=== PATIENT | female | born 1980 | race Caucasian/White ===

== ENCOUNTER 2023-08-17 12:13 | Inpatient (IN) ==
[2023-08-17] MEDS ORDERED: HYDROmorphone 1 MG/ML SYRINGE IV ONE ×3 (12:33→15:41)
[2023-08-17] MEDS ORDERED: 0.9 % SODIUM CHLORIDE 1,000 ML IV ONE ×2 (12:33→12:50)
[2023-08-17] MEDS ORDERED: ONDANSETRON 4 MG/2 ML VIAL IV ONE ×2 (12:47→13:35)
[2023-08-17] MEDS ORDERED: fentaNYL 100 MCG/2 ML VIAL IV ONE ×2 (12:51→13:35)
[2023-08-17] MEDS ORDERED: PIPERACILLIN SODIUM/TAZOBACTAM 3.375 GM in DEXTROSE 5% IN WATER 50 ML IV ONE (13:04)
[2023-08-17 15:11] LABS: HCG,Serum Negative
[2023-08-17] MEDS: HYDROmorphone 0.5 MG/0.5 ML SYRINGE IV PRN ×2 (18:23→19:20)
[2023-08-17] MEDS: CIPROFLOXACIN 400 MG/200 ML BAG IV SCH (19:23)
[2023-08-17 19:35] LABS: Blood Urea Nitrogen 9 mg/dL (6-20); Calcium 8.5 mg/dL (8.6-10.4); Carbon Dioxide 24 mmol/L (22-30); Chloride 103 mmol/L (96-108); Glomerular Filtration Rate 77; Glucose 119 mg/dL (70-105)
[2023-08-17] MEDS: DEXTROSE 5%-LR 1,000 ML IV SCH (19:38)
[2023-08-17] MEDS ORDERED: ACETAMINOPHEN 1,000 MG/100 ML BAG IV ONE (20:55)
[2023-08-17] MEDS: ACETAMINOPHEN 1,000 MG/100 ML BAG IV SCH (20:56)
[2023-08-17] MEDS: metroNIDAZOLE 500 MG/100 ML BAG IV SCH (21:44)
[2023-08-17] MEDS ORDERED: ACETAMINOPHEN 1,000 MG/100 ML BAG IV SCH (22:00)
[2023-08-18] MEDS: HYDROmorphone 0.5 MG/0.5 ML SYRINGE IV PRN ×8 (00:37→21:18)
[2023-08-18] MEDS: DEXTROSE 5%-LR 1,000 ML IV SCH ×5 (02:00→22:42)
[2023-08-18] MEDS: metroNIDAZOLE 500 MG/100 ML BAG IV SCH (05:02)
[2023-08-18] MEDS: ACETAMINOPHEN 1,000 MG/100 ML BAG IV SCH ×3 (06:04→22:43)
[2023-08-18] MEDS: CIPROFLOXACIN 400 MG/200 ML BAG IV SCH (06:51)
[2023-08-18 07:25] LABS: Hematocrit 32.4 % (34.1-44.9); Hemoglobin 11.1 g/dL (11.2-15.7); Mean Cell Volume 91.5 fL (80.0-100.0); Mean Corpuscular HGB Conc 34.3 g/dL (31.0-36.0); Platelet Count 227 K/mcL (140-440); RBC 3.54 M/mcL (3.59-5.38); Red Cell Distribution Width 12.6 % (11.5-14.5); WBC 16.2 K/mcL (4.5-11.0)
[2023-08-18] MEDS ORDERED: METOCLOPRAMIDE 10 MG/2 ML VIAL IV PRN (09:16)
[2023-08-18] MEDS ORDERED: PIPERACILLIN SODIUM/TAZOBACTAM 3.375 GM in DEXTROSE 5% IN WATER 50 ML IV SCH (10:00)
[2023-08-18] MEDS ORDERED: KETAMINE 50 MG/ML Syringe IV ONE (10:50)
[2023-08-18] MEDS ORDERED: ROCURONIUM 10 MG/ML ML IV ONE (10:51)
[2023-08-18] MEDS ORDERED: PROPOFOL 200 MG/20 ML VIAL IV ONE (10:51)
[2023-08-18] MEDS ORDERED: fentaNYL 100 MCG/2 ML VIAL IV ONE (10:51)
[2023-08-18] MEDS ORDERED: ONDANSETRON 4 MG/2 ML VIAL ONE (10:51)
[2023-08-18] MEDS ORDERED: LIDOCAINE 2% PF 5 ML VIAL ONE (10:51)
[2023-08-18] MEDS ORDERED: MAGNESIUM SULFATE 2 GM/50 ML BAG IV ONE (10:51)
[2023-08-18] MEDS ORDERED: SUGAMMADEX SODIUM 200 MG/2 ML VIAL IV ONE (10:51)
[2023-08-18] MEDS ORDERED: DEXAMETHASONE 10 MG/ML VIAL ONE (10:51)
[2023-08-18 10:55] LABS: Appearance,Urine HAZY (Clear); Bilirubin,Urine Negative (Negative); Color,Urine YELLOW; Culture Indicated,Urine No; Glucose,Urine (UA) 50 mg/dL (Negative); Ketones,Urine 5 mg/dL (Negative); Leukocyte Esterase,Urine Negative /uL (Negative); Mucus,Urine FEW /hpf; Nitrate,Urine Negative (Negative); Protein,Urine 30 mg/dL (Negative); Specific Gravity,Urine 1.036 (1.000-1.035); Urine Blood Negative (Negative); Urine Hyaline Cast 1 /lph (0-2); Urine RBC 1 /hpf (0-3); Urine Squamous Epithelial Cell 2 /hpf (0-4); Urine WBC 2 /hpf (0-4); Urobilinogen,Urine Negative
[2023-08-18] MEDS ORDERED: BUPIVACAINE W/EPI 0.5% 50 ML VIAL IJ ONE (11:28)
[2023-08-18] MEDS ORDERED: MEPERIDINE 25 MG/ML VIAL IV PRN (11:52)
[2023-08-18] MEDS ORDERED: METHOCARBAMOL 1,000 MG/10 ML VIAL IV PRN (11:52)
[2023-08-18] MEDS ORDERED: IPRATROPIUM/ALBUTEROL 3 ML AMPUL.NEB NEB PRN (11:52)
[2023-08-18] MEDS ORDERED: ONDANSETRON 4 MG/2 ML VIAL IV PRN ×2 (11:52→12:57)
[2023-08-18] MEDS ORDERED: diphenhydrAMINE 50 MG/ML VIAL IV PRN (11:52)
[2023-08-18] MEDS ORDERED: NALOXONE HCL 0.4 MG/ML VIAL IV PRN (11:52)
[2023-08-18] MEDS ORDERED: PROMETHAZINE 25 MG/ML VIAL IV PRN (11:52)
[2023-08-18] MEDS ORDERED: LACTATED RINGERS 250 ML IV PRN (11:52)
[2023-08-18] MEDS ORDERED: KETOROLAC 30 MG/ML VIAL IV PRN (11:52)
[2023-08-18] MEDS ORDERED: LACTATED RINGERS 1,000 ML IV SCH (12:00)
[2023-08-18] MEDS: MEROPENEM 1 GM in 0.9 % SODIUM CHLORIDE 50 ML IV SCH ×2 (12:53→22:09)
[2023-08-18] MEDS ORDERED: MEROPENEM 1 GM in 0.9 % SODIUM CHLORIDE 50 ML IV SCH (13:00)
[2023-08-18] MEDS: fentaNYL 100 MCG/2 ML VIAL IV PRN ×2 (13:04→13:07)
[2023-08-18] MEDS ORDERED: oxyCODONE IR 5 MG TABLET PO ONE (19:36)
[2023-08-18] MEDS: oxyCODONE IR 5 MG TABLET PO PRN (19:38)
[2023-08-19] MEDS: HYDROmorphone 0.5 MG/0.5 ML SYRINGE IV PRN ×6 (00:43→23:58)
[2023-08-19] MEDS: DEXTROSE 5%-LR 1,000 ML IV SCH ×3 (01:04→18:44)
[2023-08-19] MEDS: oxyCODONE IR 5 MG TABLET PO PRN ×5 (03:25→21:56)
[2023-08-19] MEDS: MEROPENEM 1 GM in 0.9 % SODIUM CHLORIDE 50 ML IV SCH ×3 (05:14→22:20)
[2023-08-19] MEDS: ACETAMINOPHEN 1,000 MG/100 ML BAG IV SCH ×3 (05:36→21:57)
[2023-08-19 07:04] LABS: Hematocrit 30.4 % (34.1-44.9); Mean Cell Volume 93.3 fL (80.0-100.0); Mean Corpuscular HGB Conc 32.9 g/dL (31.0-36.0); Mean Platelet Volume 10.7 fL (8.8-12.5); Platelet Count 212 K/mcL (140-440); RBC 3.26 M/mcL (3.59-5.38); Red Cell Distribution Width 12.5 % (11.5-14.5); WBC 14.9 K/mcL (4.5-11.0)
[2023-08-19 08:18] LABS: Blood Urea Nitrogen 10 mg/dL (6-20); Calcium 8.7 mg/dL (8.6-10.4); Carbon Dioxide 27 mmol/L (22-30); Chloride 96 mmol/L (96-108); Glomerular Filtration Rate 89; Glucose 122 mg/dL (70-105)
[2023-08-19] MEDS ORDERED: diphenhydrAMINE 25 MG CAPSULE PO PRN (10:33)
[2023-08-19] MEDS: diphenhydrAMINE 25 MG CAPSULE PO PRN ×2 (10:55→20:31)
[2023-08-19] MEDS: KETOROLAC 15 MG/ML VIAL IV SCH ×2 (14:25→20:31)
[2023-08-20] MEDS: oxyCODONE IR 5 MG TABLET PO PRN ×2 (02:07→05:02)
[2023-08-20] MEDS: HYDROmorphone 0.5 MG/0.5 ML SYRINGE IV PRN ×6 (04:06→22:24)
[2023-08-20] MEDS: DEXTROSE 5%-LR 1,000 ML IV SCH (04:06)
[2023-08-20] MEDS: ACETAMINOPHEN 1,000 MG/100 ML BAG IV SCH ×3 (05:01→21:32)
[2023-08-20] MEDS: KETOROLAC 15 MG/ML VIAL IV SCH ×3 (05:35→21:31)
[2023-08-20] MEDS: MEROPENEM 1 GM in 0.9 % SODIUM CHLORIDE 50 ML IV SCH ×3 (06:10→21:45)
[2023-08-20 07:22] LABS: Hematocrit 30.1 % (34.1-44.9); Hemoglobin 9.9 g/dL (11.2-15.7); Mean Cell Volume 92.6 fL (80.0-100.0); Mean Corpuscular HGB Conc 32.9 g/dL (31.0-36.0); Mean Platelet Volume 10.7 fL (8.8-12.5); Platelet Count 198 K/mcL (140-440); RBC 3.25 M/mcL (3.59-5.38); Red Cell Distribution Width 12.4 % (11.5-14.5); WBC 8.2 K/mcL (4.5-11.0)
[2023-08-20 07:58] LABS: Blood Urea Nitrogen 7 mg/dL (6-20); Calcium 8.2 mg/dL (8.6-10.4); Carbon Dioxide 29 mmol/L (22-30); Chloride 94 mmol/L (96-108); Glomerular Filtration Rate 89; Glucose 97 mg/dL (70-105)
[2023-08-20] MEDS ORDERED: DEXTROSE 5%-LR 1,000 ML IV SCH (09:31)
[2023-08-20] MEDS ORDERED: FUROSEMIDE 40 MG/4 ML VIAL IV ONE (09:40)
[2023-08-20] MEDS: diphenhydrAMINE 25 MG CAPSULE PO PRN (10:42)
[2023-08-20] MEDS ORDERED: BISACODYL 10 MG SUPP.RECT PR ONE (10:42)
[2023-08-20] MEDS ORDERED: LORazepam 2 MG/ML VIAL IV ONE (11:07)
[2023-08-20] MEDS ORDERED: IOPAMIDOL 100 ML BOTTLE IV ONE (12:22)
[2023-08-21] MEDS: HYDROmorphone 0.5 MG/0.5 ML SYRINGE IV PRN ×7 (01:56→19:31)
[2023-08-21] MEDS: KETOROLAC 15 MG/ML VIAL IV SCH (04:56)
[2023-08-21] MEDS: ACETAMINOPHEN 1,000 MG/100 ML BAG IV SCH ×3 (04:57→20:09)
[2023-08-21] MEDS: MEROPENEM 1 GM in 0.9 % SODIUM CHLORIDE 50 ML IV SCH ×3 (05:45→20:09)
[2023-08-21] MEDS: 0.9 % SODIUM CHLORIDE 10 ML SYRINGE IV SCH ×4 (07:11→20:10)
[2023-08-21 07:26] LABS: Basophils # (Auto) 0.05 K/mcL (0.00-0.30); Basophils % (Auto) 0.8 % (0.0-2.0); Eosinophils # (Auto) 0.26 K/mcL (0.00-0.70); Eosinophils % (Auto) 4.2 % (0.0-7.0); Hematocrit 29.9 % (34.1-44.9); Hemoglobin 9.8 g/dL (11.2-15.7); Lymphocytes # (Auto) 0.43 K/mcL (1.50-4.80); Lymphocytes % (Auto) 6.9 % (15.5-49.0); Mean Cell Volume 91.4 fL (80.0-100.0); Mean Corpuscular HGB Conc 32.8 g/dL (31.0-36.0); Mean Platelet Volume 10.7 fL (8.8-12.5); Monocytes # (Auto) 0.41 K/mcL (0.10-0.90); Monocytes % (Auto) 6.6 % (1.0-12.0); Neutrophils % (Auto) 81.2 % (38.0-78.0); Platelet Count 209 K/mcL (140-440); RBC 3.27 M/mcL (3.59-5.38); Red Cell Distribution Width 12.4 % (11.5-14.5); WBC 6.2 K/mcL (4.5-11.0)
[2023-08-21 08:07] LABS: ALT/SGPT 32 U/L (<40); AST/SGOT 36 U/L (<32); Albumin 2.7 gm/dL (3.2-5.2); Alkaline Phosphatase 85 U/L (39-117); Bilirubin,Total 0.3 mg/dL (0.1-1.0); Blood Urea Nitrogen 6 mg/dL (6-20); Calcium 8.2 mg/dL (8.6-10.4); Carbon Dioxide 30 mmol/L (22-30); Chloride 98 mmol/L (96-108); Globulin 2.8 gm/dL (2.2-3.7); Glomerular Filtration Rate 110; Glucose 90 mg/dL (70-105)
[2023-08-21] MEDS: FUROSEMIDE 20 MG/2 ML VIAL IV SCH ×2 (13:32→20:09)
[2023-08-21] MEDS: MAGNESIUM OXIDE 400 MG TABLET PO SCH (13:32)
[2023-08-21] MEDS: oxyCODONE IR 5 MG TABLET PO PRN ×2 (19:32→22:44)
[2023-08-22] MEDS: HYDROmorphone 0.5 MG/0.5 ML SYRINGE IV PRN ×2 (01:19→03:56)
[2023-08-22] MEDS: oxyCODONE IR 5 MG TABLET PO PRN ×2 (03:50→09:15)
[2023-08-22] MEDS: ACETAMINOPHEN 1,000 MG/100 ML BAG IV SCH (05:55)
[2023-08-22] MEDS: 0.9 % SODIUM CHLORIDE 10 ML SYRINGE IV SCH (05:56)
[2023-08-22] MEDS: MEROPENEM 1 GM in 0.9 % SODIUM CHLORIDE 50 ML IV SCH (05:56)
[2023-08-22 07:00] LABS: Basophils # (Auto) 0.03 K/mcL (0.00-0.30); Basophils % (Auto) 0.4 % (0.0-2.0); Eosinophils # (Auto) 0.32 K/mcL (0.00-0.70); Hemoglobin 10.7 g/dL (11.2-15.7); Lymphocytes # (Auto) 0.69 K/mcL (1.50-4.80); Lymphocytes % (Auto) 8.6 % (15.5-49.0); Mean Cell Volume 95.8 fL (80.0-100.0); Mean Corpuscular HGB Conc 31.5 g/dL (31.0-36.0); Mean Platelet Volume 10.2 fL (8.8-12.5); Monocytes # (Auto) 0.78 K/mcL (0.10-0.90); Monocytes % (Auto) 9.8 % (1.0-12.0); Neutrophils % (Auto) 76.8 % (38.0-78.0); Platelet Count 243 K/mcL (140-440); RBC 3.55 M/mcL (3.59-5.38); Red Cell Distribution Width 12.5 % (11.5-14.5)
[2023-08-22 07:47] LABS: Blood Urea Nitrogen 12 mg/dL (6-20); Calcium 8.4 mg/dL (8.6-10.4); Carbon Dioxide 31 mmol/L (22-30); Chloride 96 mmol/L (96-108); Glomerular Filtration Rate 105; Glucose 90 mg/dL (70-105)
[2023-08-22] MEDS: MAGNESIUM OXIDE 400 MG TABLET PO SCH (09:14)
== END 2023-08-22 11:33 | disposition home or self-care (01) | DRG 398 ==
LOC: ED 12:13 → MEDSUR 12:13 → SUATTDRO 08-19 11:47
PROVIDERS: ADMIT Surgery Surgical Critical Care; ATTEND Family Medicine Adult Medicine